=== PATIENT | female | born 1950 | race Caucasian/White ===

== ENCOUNTER 2016-10-15 06:00 | Day surgery (SDC) | payer MEDICARE, OTHER ==
[2016-10-13 09:33] LABS: BASOPHILS 0.5 % (0.0-2.0); EOSINOPHILS 1.9 % (0-7); HEMATOCRIT 43.5 % (36.0-48.0); HEMOGLOBIN 14.3 g/dL (12-16); LYMPHOCYTES 38.8 % (15-50); MCH 30.4 pg (26.0-34.0); MCHC 32.9 g/dL (31.0-37.0); MCV 92.4 fL (80.0-100.0); MEAN PLATELET VOLUME 9.7 fL (7.4-10.4); MONOCYTES 9.2 % (2-11); NEUTROPHILS 49.6 % (40-80); RBC 4.71 10x6/uL (4.00-5.40); RDW 13.4 % (11.5-14.5); WBC 5.8 10x3/uL (4.8-10.8)
[2016-10-13 09:38] LABS: PLATELET COUNT 208 10x3/uL (130-400)
[2016-10-13 09:50] LABS: APTT 26.8 SECONDS (22.8-39.4); INR 1.46 (0.85-1.17); PROTIME 17.7 SECONDS (11.6-15.0)
[~2016-10-15] VITALS: Ht 162.6 cm; Wt 87.1 kg
[~2016-10-15 06:00] MED LIST: AMBIEN5 MG PO; ANASTROZOLE1 MG PO; CLARITIN 10 MG10 MG PO; CLEOCIN HCL300 MG PO; ELIQUIS5 MG PO; HYDROCODONE-APA1 TAB PO; LEVOTHROID75 MCG PO; LOVAZA1 G PO; MACROBID100 MG PO; MULTAQ400 MG PO; PERCOCET 10/3251 TA1 PO; RETAINE EACH EYE; [UNRECOGNIZED DRUG - OTHER] EACH EYE
[2016-10-15 06:20] VITALS: BP 125/81; Ht 162.6 cm; Wt 87.1 kg
--- NOTE | 2016-10-15 14:30 | NUR ---
VOIDED WITHOUT DIFFICULTY. SCANT RECTAL BLEEDING. STATES PAIN IS WELL CONTROLLED. DENIES NAUSEA. IV REMOVED WITH TIP INTACT. DISCHARGE INSTRUCTIONS AND RX FOR NORCO, VALIUM AND COLACE GIVEN, VOICED UNDERSTANDING.
--- NOTE | 2016-10-15 15:00 | NUR ---
DISCHARGED HOME VIA .
--- NOTE | 2016-12-08 10:17 | OP ---
PATIENT NAME: SEVERINO VALDEZ MEDICAL RECORD: [id number] :48 LOCATION:D.FORMERLY [facility] ADMISSION DATE: SURGEON: JUDITH ORTA MD DATE OF OPERATION: 10/15/2016 PREOPERATIVE DIAGNOSIS: 1. Desires screening colonoscopy. 2. Intractable symptomatic internal and external hemorrhoids. 3. Anal prolapse with third-degree internal hemorrhoidal prolapse of the anus. POSTOPERATIVE DIAGNOSES: 1. Desires screening colonoscopy. 2. Intractable symptomatic internal and external hemorrhoids. 3. Anal prolapse with third-degree internal hemorrhoidal prolapse of the anus. PROCEDURE: 1. Total colonoscopy to cecum. 2. Procedure for prolapse and hemorrhoids. SURGEON: Judith Orta MD MUTUEL MACHINE OPERATOR: None. BLOOD LOSS: Minimal. ANESTHESIA: General. COMPLICATIONS: None. The risks, possible complications and alternatives to the procedure were explained to the patient. She elects to proceed. The discussion specifically included, but was not limited to, bleeding requiring an emergency reoperation, infection, postoperative bleeding, delayed bleeding, and endoscopic perforation. OPERATIVE COURSE: The patient was conveyed to the operating room electively on 10/15/2016. General anesthesia was induced by the anesthesia staff. The patient was placed in the Haines position. A digital rectal examination was performed. A colonoscope was inserted through the anus. It was easily advanced to the cecum. The prep was excellent. I slowly withdrew the endoscope. I irrigated and aspirated extensively. The pullback was greater than a 14-minute pullback. I dragged the folds. A combination of direct imaging as well as narrow band imaging were utilized. There were a few scattered sigmoid diverticulosis. I only identified 2 or 3 diverticula. A retroflexed view was obtained in the rectum. I then unretroflexed the scope and removed it under direct vision. The patient was then placed in the lithotomy position. The buttocks were taped laterally. The anus and perianal areas were sterilely prepped and draped. A PPH dilator retractor was placed and sewn in place to the surrounding anoderm with 2-0 silks. A mucosal pursestring suture of 2-0 Prolene was applied 1 cm cephalad to the clear retractor. A PPH stapling device was inserted with anvil cephalad to the pursestring suture, which was then tightened and tied. The stapling device was engaged. It was held in place for 3 minutes and then fired. It was then OPERATIVE REPORT [id number] SEVERINO VALDEZ removed. There was an entire donut of rectal mucosal tissue within the stapling device. Bleeding along the anastomotic staple line was controlled with [id number] 3-0 Vicryl sutures. The clear retractor was removed. There was some bleeding from an external hemorrhoid at 6 o'clock and this was controlled with the electrocautery. Gelfoam was applied within the anus and rectum. A combination of sterile preparation and Marcaine were used to infiltrate the perianal tissues. I examined the vagina. There has been no injury to the posterior wall of the vagina. No evidence of a vaginal injury other than a small abrasion at the introitus inferiorly at 6 o'clock. A topical anesthetic was applied to the external hemorrhoids. The patient was then extubated and conveyed to post-anesthesia care unit where she was in stable condition. She is going to be dismissed home on Colace as well as Valium and Rodanthe. I will see her in the office in 2-3 weeks. TRANSINT:[id number] Voice Confirmation ID: [id number] DOCUMENT ID: [id number] JUDITH ORTA MD at 1017 CC: ROQUE RAND M.D. and ROXANN SARABIA MD [id number] DICTATION DATE: 10/15/16 1052 OUTBOUND SALES REPRESENTATIVE: 10/15/16 1301 [facility] 10/15/16 [facility] [address] [place] [address]
--- NOTE | 2016-12-08 10:17 | HP ---
PATIENT: SEVERINO VALDEZ MEDICAL RECORD: [id number] ACCOUNT: [id number] LOCATION:TAB : 48 ADMISSION DATE: 10/15/16 HISTORY AND PHYSICAL EXAMINATION PRINCIPAL DIAGNOSIS: Desires screening colonoscopy, also symptomatic hemorrhoids HISTORY OF PRESENT ILLNESS: The patient has intractably symptomatic internal and external hemorrhoids. She has rectal bleeding. She has anal burning, itching and throbbing. We have to reserved her right arm and also she has had significant DVT of the left leg, with phlegmasia cerulea dolens. She has been on Eliquis. She did not take it this morning. I told her that I want to take her next dose of Eliquis on Tuesday. Today is Tuesday. The risks, possible complications and alternatives to colonoscopy with the procedure for prolapsing hemorrhoids were discussed with the patient. She elects to proceed. ALLERGIES: KEFLEX, PENICILLIN AND TETRACYCLINE. HOME MEDICATIONS: Arimidex, Eliquis, Synthroid and Dronedarone. SOCIAL HISTORY: Former smoker. PAST MEDICAL HISTORY AND PAST SURGICAL HISTORY: Breast cancer, history of right breast surgery, hypothyroidism, on replacement therapy, DVT, IVC filter, port placement, and atrial fibrillation. REVIEW OF SYSTEMS: Negative for CVA or seizures. Negative for renal disease or hepatitis. PHYSICAL EXAMINATION: GENERAL: The patient does not appear acutely ill. She does not appear chronically ill. VITAL SIGNS: Reviewed. HEAD: External ears appear normal. EYES: Extraocular movements are intact. NECK: Trachea is midline. CHEST: No intercostal retractions. PULMONARY: Nonlabored, no stridor. ABDOMEN: Nontender, hemorrhoids third-degree: Internal hemorrhoidal prolapse of the anus. IMPRESSION: 1. Desires screening colonoscopy. 2. Intractably symptomatic hemorrhoids. PLAN: Colonoscopy and procedure for prolapse and hemorrhoids. TRANSINT:[id number] Voice Confirmation ID: [id number] DOCUMENT ID: [id number] HISTORY AND PHYSICAL [id number] JOSÉ MIGUELSEVERINOJUDITH SIERRA MD at 1017 CC: ROQUE RAND M.D. and ROXANN SARABIA MD [id number] DICTATION DATE: 10/15/16 1041 FORM MAKER PLASTER: 10/15/16 1203 [facility] 10/15/16 [facility] [address] [facility] [place] [address]
== END 2016-10-15 15:00 | disposition home or self-care (01) ==
LOC: D.OPS 06:00 → D.PAN 08:00 → D.OPS 15:00
PROVIDERS: Anesthesiology
DX: Z12.11 Encounter for screening for malignant neoplasm of colon (principal); K64.2 Third degree hemorrhoids; K64.4 Residual hemorrhoidal skin tags; K57.30 Diverticulosis of large intestine without perforation or abscess without bleeding; Z85.3 Personal history of malignant neoplasm of breast; E03.9 Hypothyroidism, unspecified; Z86.718 Personal history of other venous thrombosis and embolism; Z79.01 Long term (current) use of anticoagulants; I48.91 Unspecified atrial fibrillation; Z79.899 Other long term (current) drug therapy; Z88.1 Allergy status to other antibiotic agents; Z88.0 Allergy status to penicillin; Z88.8 Allergy status to other drugs, medicaments and biological substances
CPT/HCPCS: 46947; G0121

== ENCOUNTER 2017-06-19 21:01 | Observation (INO) | payer MEDICARE, OTHER ==
[~2017-06-19] VITALS: Ht 162.6 cm; Wt 89.8 kg
[2017-06-19 22:10] LABS: APPEARANCE CLEAR (CLEAR); BILIRUBIN NEGATIVE (NEGATIVE); COLOR COLORLESS (YELLOW); GLUCOSE NEGATIVE (NEGATIVE); KETONE NEGATIVE (NEGATIVE); LEUKOCYTE ESTERASE NEGATIVE (NEGATIVE); NITRITE NEGATIVE (NEGATIVE); PH 7.5 (5.0-6.0); PROTEIN NEGATIVE (NEGATIVE); SPECIFIC GRAVITY 1.005 (1.005-1.020); UROBILINOGEN NORMAL (NORMAL)
[2017-06-19 22:15] LABS: BASOPHILS 0.5 % (0-2); HEMATOCRIT 42.8 % (36.0-48.0); HEMOGLOBIN 14.4 g/dL (12-16); IMMATURE GRANULOCYTES 0.1 % (0-5); LYMPHOCYTES 52.5 % (15-50); MCH 30.3 pg (26.0-34.0); MCHC 33.6 g/dL (31.0-37.0); MCV 90.1 fL (80.0-100.0); MEAN PLATELET VOLUME 9.6 fL (7.4-10.4); MONOCYTES 7.1 % (2-11); NEUTROPHILS 37.8 % (40-80); PLATELET COUNT 225 10x3/uL (130-400); RBC 4.75 10x6/uL (4.00-5.40); RDW 13.3 % (11.5-14.5); WBC 7.4 10x3/uL (4.8-10.8)
[2017-06-19 22:25] LABS: INR 1.11 (0.85-1.17); PROTIME 14.2 SECONDS (11.6-15.0)
[2017-06-19 22:28] LABS: ALBUMIN 3.6 g/dL (3.4-5.0); ALKALINE PHOSPHATASE 114 U/L (46-116); ALT (SGPT) 29 U/L (10-68); CALC OSMOLALITY 293 mosm/kg (275-300); CALCIUM 9.4 mg/dL (8.5-10.1); CARBON DIOXIDE 29.5 mmol/L (21.0-32.0); CHLORIDE - SERUM 108 mmol/L (98-107); CREATININE - SERUM 1.1 mg/dL (0.6-1.3); GLUCOSE 142 mg/dL (74-106); PROTEIN - SERUM 7.2 g/dL (6.4-8.2); SODIUM 145 mmol/L (136-145); UREA NITROGEN 20 mg/dL (7-18); eGFR NON AFRICAN AMERICAN 52 mL/min (90-120)
[2017-06-19 22:31] LABS: CREATINE KINASE 123 UL (21-215); TROPONIN-I < 0.017 ng/mL (0.000-0.060)
[2017-06-19 22:59] LABS: APTT < 20.0 SECONDS (22.8-39.4)
--- NOTE | 2017-06-20 01:30 | NUR ---
PT ARRIVED VIA STRETCHER WITH MARII MARSH CP. NO DISTRESS NOTED.
[2017-06-20 01:57] VITALS: BP 145/68; Ht 162.6 cm; Wt 89.8 kg
--- NOTE | 2017-06-20 02:31 | NUR ---
ADMISSION ASSESSMENT, HISTORY AND HOME MED LIST COMPLETED. SR PER CM HR 73. VSS. IV TO LFA WIHT CARDIZEM AT 5MG/HR. IV PATENT. O2 2LNC. BILAT MASECTOMY NOTED. RESERVE R ARM DUE TO LYMPH NODE REMOVAL. L LEG SLIGHTLY LARGER THAT R. PT DENIES ANY DISCOMFORT. SR UP X2, CALL LIGHT WITHIN EACH.
--- NOTE | 2017-06-20 03:55 | NUR ---
PT RESTING WITH EYES CLOSED. RESP EVEN AND REGULAR. SR UP X2, CALL LIGHT WITHIN REACH.
[2017-06-20 04:00] VITALS: BP 119/62
--- NOTE | 2017-06-20 06:26 | NUR ---
SR PER CM. PT CURRENTLY RESTING WITH EYES CLOSED. RESP EVEN AND REGULAR. SR UP X2, CALL LIGHT WITHIN REACH.
[2017-06-20 08:00] VITALS: BP 126/65
[2017-06-20 12:00] VITALS: BP 148/58
--- NOTE | 2017-06-20 15:20 | NUR ---
ALERT AND ORIENTED X4. AMBULATING IN [place]. GAIT STEADY. DENIES SOB OR PAIN. ANXIOUS TO GO HOME. AT SIDE. SINUS RHTHYM 78bpm ON TELEMETRY. CONTINUE PLAN OF CARE AND SAFETY PRECAUTIONS.
[2017-06-20 16:00] VITALS: BP 146/61
[2017-06-20 19:00] VITALS: BP 101/53
[2017-06-21] VITALS: BP 119/58
--- NOTE | 2017-06-21 02:53 | NUR ---
CALL LIGHT IN REACH, WILL CONTINUE WITH PLAN OF CARE.
[2017-06-21 04:00] VITALS: BP 142/66
[2017-06-21 08:00] VITALS: BP 130/66
--- NOTE | 2017-06-21 08:25 | EC ---
PATIENT:SEVERINO VALDEZ DATE OF SERVICE: 06/20/17 SEX: F MEDICAL RECORD: [id number] DATE OF : 48 LOCATION:D.M2 D.211 AGE OF PATIENT: 66 ADMISSION DATE: 06/20/17 REFERRING PHYSICIAN: INTERPRETING PHYSICIAN: SANKET REZA MD ECHOCARDIOGRAM REPORT ECHO CHARGES 4 ECHO COMPLETE CLINICAL DIAGNOSIS: A-FIB ECHOCARDIOGRAPHIC MEASUREMENTS (adult normal given) AC root (d.<3.7cm) 3.0 cm LV Septum d (<1.2 cm> 1.2 cm Valve Excursion 2.2 cm LV Septum (systole) 1.8 cm Left Atria (s.<4.0cm> 3.9 cm LVPW d(<1.2cm) 1.2 cm RV (d.<2.3cm) 2.3 cm LVPW (sytole) 2.1 cm LV diastole(<5.6CM) 4.4 cm MV E-F(>70mm/sec) cm LV systole 1.9 cm LVOT Diameter 1.7 cm MV exc.(>10mm) cm Est.ejection fraction (50-75%) % Pericardial Effusion N DOPPLER: LVIT cm/sec A 90.0 cm/sec E 73.0 cm/sec LA cm/sec RVSP 24.0 mmHg LVOT 103 cm/sec AOP1/2T m/s Asc. Ao 119 cm/sec RVOT 68.0 cm/sec RA cm/sec PA 100 cm/sec AV Gradient Peak 5.7 mmHg AV Mean 2.7 mmHg AV Area 2.2 cm MV Gradient Peak 3.6 mmHg MV Mean 1.7 mmHg MV Area cm COMMENTS: Bookbinder Apprentice: Kim MILLEROE Veterinary Medicine Teacher: 4 Dr. Reza TAPE# PACS DATE OF SERVICE: 06/20/2017 Transthoracic Echocardiogram FINDINGS: 1. The left ventricle has mild left ventricular hypertrophy with preserved LV systolic function and flow characteristics consistent with diastolic dysfunction. 2. The mitral valve is grossly and structurally seemed to be normal with evidence of trace mitral regurgitation. ECHOCARDIOGRAM REPORT [id number] SEVERINO AVLDEZ 3. The left atrium is normal size, normal function. 4. The aortic valve is structurally normal with no evidence of stenosis or regurgitation. 5. The right ventricle has normal size, normal function. 6. The right atrium has normal size, normal function. 7. The tricuspid valve has normal function with trace tricuspid regurgitation, normal right ventricular systolic pressures. 8. The pericardium is normal. 9. The IVC is normal. CONCLUSIONS: Overall, normal function. Normal echocardiography. TRANSINT:[id number] Voice Confirmation ID: [id number] DOCUMENT ID: [id number] SANKET REZA MD at 0825 CC: [id number] DICTATION DATE: 06/20/171656 PIPE AND TEST SUPERVISOR: 06/21/17 0026 ADM IN [facility] [address] [place] [address]
[2017-06-21] MEDS ORDERED: MULTAQ400 MG PO (09:02)
[2017-06-21] MEDS ORDERED: TOPROL XL25 MG PO (09:03)
[2017-06-21 12:00] VITALS: BP 148/68
[2017-06-21] MEDS ORDERED: ELIQUIS5 MG PO (12:11)
--- NOTE | 2017-06-21 13:57 | NUR ---
ALERT AND ORIENTED X4. DC LT FA IV TIP INTACT. DISCHARGE INSTRUCTIONS GIVEN VERBALLY AND WRITTEN. DISCHARGE PAPERS SIGNED ON CHART. ESCORT TO RIDE VIA WHEELCHAIR. REMAINS FREE FROM INJURY.
== END 2017-06-21 13:58 | disposition home or self-care (01) ==
LOC: D.ER 21:01 → OBSVTIME 06-20 00:52 → D.M2 06-20 00:52
PROVIDERS: Emergency Medicine; ADMIT Emergency Medicine
DX: I48.91 Unspecified atrial fibrillation (principal); Z79.01 Long term (current) use of anticoagulants; I48.92 Unspecified atrial flutter; I10 Essential (primary) hypertension; I34.0 Nonrheumatic mitral (valve) insufficiency; G62.9 Polyneuropathy, unspecified; E03.9 Hypothyroidism, unspecified; E78.5 Hyperlipidemia, unspecified; Z86.718 Personal history of other venous thrombosis and embolism; Z85.3 Personal history of malignant neoplasm of breast; Z87.891 Personal history of nicotine dependence

== ENCOUNTER 2017-08-17 22:30 | Emergency (ER) | payer MEDICARE, OTHER ==
[2017-06-20 01:57] VITALS: BMI 33.6
[~2017-08-17 22:30] MED LIST changes: +TOPROL XL25 MG PO
== END 2017-08-18 00:01 | disposition home or self-care (01) ==
LOC: D.ER 22:30
DX: K11.5 Sialolithiasis (principal); I10 Essential (primary) hypertension; Z85.3 Personal history of malignant neoplasm of breast